=== PATIENT | female | born 1965 | race Caucasian/White ===

== ENCOUNTER 2019-10-14 22:47 | Emergency (ER) | payer OTHER, SELFPAY ==
--- NOTE | ~2019-10-14 | XR_ITS ---
EXAMINATION: XR chest 1V portable DATE: 10/15/2019 00:09 INDICATION: Presyncope. Fever. Nausea and vomiting. TECHNIQUE: frontal view of the chest was obtained. COMPARISON: None FINDINGS: The lungs are clear with no focal airspace opacities, pulmonary edema, pleural effusion or pneumothor ax. The cardiomediastinal silhouette is normal. Visualized bones and soft tissues are unremarkable. IMPRESSION: 1. No acute cardiopulmonary disease. Reviewed, dictated and finalized at location A.
[2019-10-14 22:49] VITALS: BP 132/106; PULSE 98; RESP 20; TEMP 38.1; O2SAT 100
[2019-10-14 23:12] VITALS: BP 124/68; PULSE 83; RESP 17; TEMP 38.7; O2SAT 98
[2019-10-14 23:29] LABS: Add Urine Microscopic? YES; Amorphous Sediment Urine Few; Appearance Urine Cloudy (Clear); Bilirubin Urine Negative (Negative); Blood Urine 1+ (Negative); Color Urine Straw (Yellow); Glucose Urine UA Negative (Negative); Ketones Urine Negative (Negative); Leukocyte Esterase Ur Negative LEU/UL (Negative); Nitrate Urine Negative (Negative); Protein Urine Negative (Negative); Specific Grav Ur 1.015 (1.001-1.035); Squamous Epithelial Cell Urine Few /hpf (Few); Urobilinogen Urine Negative mg/dL (<2.0); WBC Urine 0-3 /hpf
--- NOTE | 2019-10-14 23:43 | ECG_ITS ---
Measurements Intervals [place] Rate: 79 P: 59 WV: 144 QRS: 46 QRSD: 91 T: 66 QT: 353 QTc: 407 Interpretive Statements SINUS RHYTHM LOW QRS VOLTAGE IN PRECORDIAL LEADS BORDERLINE ECG Electronically Signed On 10-15-2019 7:08:58 CDT by Han Olivas D.O.
--- NOTE | 2019-10-14 23:48 | ED.FEVER ---
HPI - Fever General Chief Complaint: Fever Stated Complaint: fever, vomitin Time Seen by Provider: 10/14/19 22:57 Source: patient Mode of arrival: ambulatory Limitations: no limitations History of Present Illness HPI Narrative: This patient is a 54 year old female who presents for evaluation of fever and chills. PAtient reports she was feeling fine and then she developed sudden onset chills and subjective fever. She had associated nausea and vomiting. She also had an episode in which she felt like she was going to pass out. She took ibuprofen for her fever so she feels better. She has no other complaints. Related Data Allergies Allergy/AdvReac Type Severity Reaction Status Date / Time No Known Allergies Allergy Unknown Verified 10/28/17 09:46 Review of Systems Review of Systems: All systems reviewed & are unremarkable except as noted in HPI and below Constitutional: Constitutional: Reports chills and Reports fever(s) ENT: Reports dizziness and Denies sore throat Cardiovascular: Cardiovascular: Denies chest pain Respiratory: Respiratory: Denies cough and Denies dyspnea Gastrointestinal: Gastrointestinal: Denies abdominal pain, Denies diarrhea, Reports nausea and Reports vomiting Genitourinary: Genitourinary: Denies hematuria, Denies nocturia and Denies flank pain Musculoskeletal: Musculoskeletal: Denies back pain PMFSH Past Medical History Medical History (Updated 10/15/19 @ 01:57 by Allison Davis MD) Patient denies medical problems Surgical History Surgical History (Updated 10/14/19 @ 23:50 by Allison Davis MD) H/O: hysterectomy Social History Social History Gender identity (if verbalized by the patient): Female Exam Narrative: Exam Narrative: GENERAL: Well-appearing, well-nourished, and in no acute distress. HEAD: Normocephalic, atraumatic EYES: PERRLA and EOMI, conjunctiva clear without discharge EARS: TM's clear bilaterally without erythema or dullness NOSE: Nares clear, no rhinorrhea or epistaxis THROAT:Mucous membranes moist, Oropharynx normal without erythema, exudate, peritonsillar swelling or fluctuance NECK: Supple, without lymphadenopathy or mass RESPIRATORY: No respiratory distress, Airway patent, Respirations non-labored, Clear to auscultation without rales, rhonchi or wheeze HEART: Regular rate and rhythm. No murmur heard. Normal peripheral pulses. ABDOMEN: Soft, nontender, nondistended, normal active bowel sounds. No masses. No rebound or guarding, No organomegaly. EXTREMITIES: No edema, normal strength with full range of motion. SKIN: Warm, dry, normal color without rash NEURO: Alert and oriented x3. CN 2-12 grossly intact. No focal deficits. PSYCH: Normal mood and affect. Course Reevaluation(s) Reevaluation #1: Aquilino has no symptoms and her fever has resolved . Her temperature is 98.7. She understands she will be tested for COVID. She will follow up with PCP Date: 10/15/19 Time: 01:54 Vital Signs Vital signs: Vital Signs Temperature 100.5 F H 10/14/19 22:49 Pulse Rate 98 10/14/19 22:49 Respiratory Rate 20 10/14/19 22:49 Blood Pressure 132/106 H 10/14/19 22:49 Pulse Oximetry 100 10/14/19 22:49 Temperature 98.7 F 10/15/19 01:56 Pulse Rate 76 10/15/19 02:10 Respiratory Rate 18 10/15/19 02:10 Blood Pressure 102/65 10/15/19 02:10 Pulse Oximetry 98 10/15/19 02:10 MDM - Fever Lab Data Attestation: I reviewed the patient's lab results. Result diagrams: 10/14/19 23:56 10/14/19 23:56 Labs: Lab Results 10/14/19 10/14/19 10/14/19 Range/Units 23:19 23:56 23:56 WBC 7.6 (4.5-10.0) K/mm3 RBC 4.01 L (4.2-5.4) M/mm3 Hgb 13.1 (12.0-15.0) g/dL Hct 38.1 (37.0-47.0) % MCV 95.0 (80-100) fl MCH 32.7 (26-34) pg MCHC 34.4 (32-36) g/dl RDW 11.6 (11.5-14.5) % Plt Count 191 (150-375) k/mm3 MPV 10.9 H (7.4-10.4) fl Immature Gran % (Auto)
[2019-10-15 00:21] VITALS: BP 114/61; BP 114/72; PULSE 79; PULSE 94
[2019-10-15 00:22] LABS: Basophils Percent Auto 0.3 % (0.2-1.2); Eosinophils Percent Auto 0.3 % (0-4.4); Hematocrit 38.1 % (37.0-47.0); Hemoglobin 13.1 g/dL (12.0-15.0); Immature Granulocyte Absolute 0.02 K/mm3 (0.00-0.031); Immature Granulocyte Percent A 0.3 % (0-0.5); Lymphocytes Absolute Auto 0.58 K/mm3 (0.9-3.2); Lymphocytes Percent Auto 7.6 % (18.3-44.2); Mean Corpuscular HGB Conc 34.4 g/dl (32-36); Mean Corpuscular Hemoglobin 32.7 pg (26-34); Mean Platelet Volume 10.9 fl (7.4-10.4); Monocytes Absolute Auto 0.7 K/mm3 (0.1-0.6); Monocytes Percent Auto 9.3 % (2.6-8.5); Neutrophils Absolute Auto 6.3 K/mm3 (1.3-6.7); Neutrophils Percent Auto 82.2 % (45.5-73.1); Platelet Count Result 191 k/mm3 (150-375); Red Blood Count 4.01 M/mm3 (4.2-5.4); Red Cell Distribution Width 11.6 % (11.5-14.5); White Blood Count 7.6 K/mm3 (4.5-10.0)
[2019-10-15 00:23] VITALS: BP 110/67; PULSE 75
[2019-10-15 00:25] LABS: Lactic Acid Reflex 1.1 mmol/L (0.7-2.1)
[2019-10-15 00:29] LABS: Alanine Aminotransferase 10 U/L (4-35); Albumin Level 4.1 g/dL (3.5-5.1); Alkaline Phosphatase 96 U/L (38-126); Anion Gap 5 mmol/L (8-16); Aspartate Amino Transferase 21 U/L (14-36); Bilirubin,Total 0.1 mg/dL (0.2-1.3); Blood Urea Nitrogen 14 mg/dL (7-17); CRP 1.6 mg/dL (<1.0); Calcium 9.1 mg/dL (8.4-10.2); Carbon Dioxide 30 mmol/L (22-30); Chloride 100 mmol/L (98-107); Estimated CRCL calculation 63 ml/min; Estimated Glomerular Filt Rate > 60; Glucose 129 mg/dL (65-105); Potassium 3.9 mmol/L (3.4-5.0); Sodium 135 mmol/L (137-145)
[2019-10-15 01:56] VITALS: TEMP 37.1
[2019-10-15 02:10] VITALS: BP 102/65; PULSE 76; RESP 18; O2SAT 98
[2019-10-15 14:19] LABS: SARS-CoV-2 RNA PCR Negative
== END 2019-10-15 02:10 | disposition home or self-care (01) ==
PROVIDERS: Emergency Provider General Practice
DX: R50.9 Fever, unspecified (principal); Z20.828 Contact with and (suspected) exposure to other viral communicable diseases
CPT/HCPCS: 36415; 71045; 80053; 81001; 83605; 85025; 86140; 87081; 87635; 87880; 93005; 99283; C9803; U0003

== ENCOUNTER → 2023-02-02 09:53 | Outpatient (CLI) | payer OTHER, SELFPAY ==
--- NOTE | ~2023-02-02 | XR_ITS ---
XR shoulder RT min 2V 02/02/2023 10:12 INDICATION: Right shoulder pain PROCEDURE: 4 views right shoulder COMPARISON: No prior studies for comparison. FINDINGS: Fracture, dislocation or subluxation is not identified. The soft tissues appear within norm al limits. No foreign bodies are identified. IMPRESSION: 1: NO ACUTE BONE OR JOINT ABNORMALITY IDENTIFIED. Reviewed, dictated and finalized at location B. SUPERVISOR
== END ==
PROVIDERS: PCP Nurse Practitioner Family; Visit Provider Nurse Practitioner Family
DX: M25.511 Pain in right shoulder (principal)
CPT/HCPCS: 73030